=== PATIENT | female | born 1980 | race Caucasian/White ===

== ENCOUNTER → 2018-01-29 | Outpatient (CLI) | payer OTHER ==
[~2018-01-29] MED LIST: DHA PO; NORE0.3516 PO; ONDA4TAB97 PO; PREN-85 PO
[2018-01-29 11:27] LABS: PLATELET COUNT, AUTOMATED 185 K/uL (150-450)
--- NOTE | 2018-01-29 16:44 | RADIOLOGY IMAGING REPORT ---
FACILITY: [facility] [place] PATIENT NAME: Shania Vega : 1980 MR: [id number] V: [id number] EXAM DATE: ORDERING PHYSICIAN: FRANKLIN ACUNA TECHNOLOGIST: Location: [facility] Patient: Shania Vega : 1980 Visit/Account:[id number] Date of Sevice: 01/29/2018 Technique: CHEST PA AND LAT HISTORY: Night sweats COMPARISON: None available Findings: The lungs are clear. No pleural effusion or pneumothorax. The cardiomediastinal silhouett e is normal. Impression: 1. No acute cardiopulmonary process. Report Dictated By: Erasto Carrillo DO at 01/29/2018 4:39 PM Report E-Signed By: Erasto Carrillo DO at 01/29/2018 4:40 PM WSN:[id number]
== END ==
LOC: SPU 11:04
PROVIDERS: ATTEND Internal Medicine
DX: R79.89 Other specified abnormal findings of blood chemistry (principal); R61 Generalized hyperhidrosis
CPT/HCPCS: 71046; 82040; 82247; 82310; 82374; 82435; 82565; 82947; 83615; 84075; 84132; 84155; 84295; 84443; 84450; 84460; 84520; 84550; 85025

== ENCOUNTER → 2018-01-29 | Outpatient (CLI) | payer OTHER ==
--- NOTE | 2018-01-29 17:07 | RADIOLOGY IMAGING REPORT ---
FACILITY: [facility] PATIENT NAME: Shania Vega : 1980 MR: [id number] V: [id number] EXAM DATE: ORDERING PHYSICIAN: JEAN-PIERRE SMITH TECHNOLOGIST: Location: [facility] [place] Patient: Shania Vega : 1980 Visit/Account:[id number] Date of Sevice: 01/29/2018 Abdominal ultrasound Indication: Elevated LFTs Comparison: None Findings: Liver is normal in size, contour, and echotexture and measures 17.9 cm in length. There is normal hep atopedal portal venous flow. The spleen is normal in size, contour, and echotexture and measures 11.6 cm in length. Gallbladder surgically absent. Common duct measures 1.7 mm in maximum diameter with no evidence of shadowing stone. The head and proximal body of the pancreas is unremarkable. The distal body and tail is obscured by o verlying bowel gas. Abdominal aorta and IVC are patent and unremarkable. The bilateral kidneys are normal in size, contour, and echotexture with the right kidney measuring 9 .3 cm and the left kidney measuring 10.7 cm. IMPRESSION: 1. Unremarkable abdominal ultrasound as above. Report Dictated By: Ceasar Marte at 01/29/2018 5:02 PM Report E-Signed By: Ceasar Marte at 01/29/2018 5:04 PM WSN:[id number]
== END ==
LOC: RAD 15:03
PROVIDERS: ATTEND Internal Medicine Hematology
DX: R94.5 Abnormal results of liver function studies (principal)
CPT/HCPCS: 76700

== ENCOUNTER 2018-06-07 08:15 | Outpatient (RCR) | payer OTHER ==
--- NOTE | 2018-05-17 11:14 | PT INITIAL EVALUATION ---
MEDICAL DIAGNOSIS: Right hip likely labral tear TREATMENT DIAGNOSIS: same DATE OF ONSET: 04/09/18 SUBJECTIVE: Shania Vega presents to physical therapy with R hip pain that started approximately 6 weeks ago after doing hell sprints. She reports that he has stopped running or biking and limits her stretching and strength training staying away from ranges that causes pain in her R hip. She reports the following activities aggravate her R hip: full squat or lunge, increased R hip flexion, and sitting for long periods of time. She reports that if she sits for a long car ride her pain will last for approximately 15 to 20 minutes. Otherwise, she will feel the pain for a splint seconds that states that the pain is extremely sharp and then it would go away. She also reports that she has a popping noise/sensation that is not painful but does feel different/weird than normal. She reports that she would like to return to running, biking, and full strengthening training without any hip pain. She reports that nothing seems to make it feel better since it just lasts for a few seconds anyway. Pain location is R anterior hip and described as sharp. Pain scale is 1 on a ten point pain scale. REHAB PROBLEM LIST: Increased Pain Decreased ROM Decreased Strength Decreased Endurance Decreased Function Decreased Mobility PREVIOUS MEDICAL HISTORY: See EMR OCCUPATION: Clinical Pharmacist at [employer] OBJECTIVE: Posture: She demonstrated excellent posture mechanics in sitting and standing. ROM: R hip: flexion: full with painful end feel. Extension: full with normal end feel. IR: full with normal end feel. ER: full with normal end feel. Strength: R hip flexion: 4+/5 with pain, hip extension: 5/5 with no pain, hip adduction: 4+/5 with pain, hip IR/ER: 5/5 with no pain. Palpation: TTP: R anterior hip, iliopsoas Sensation: Intact L2-S2 Special Tests: Repeated flexion: pain during the test and worse following the test with decreased R hip flexion/adduction strength and increased pain. Repeated extension: pain during the test and worse following the test with decreased R hip flexion/adduction strength and increased pain. Repeated ER: stretch during the test and better following the test with increased strength R hip flexion/adduction strength and abolished pain. PAPI: positive, FADIR: positive, anterior labral test: positive, posterior labral test: negative Mobility: Independent Gait: She demonstrated normal gait mechanics; she did not demonstrate any signs or symptoms of antalgic gait. Balance: Will test in the future Other Objective Findings: ASSESSMENT: Shania will benefit from skilled physical therapy to address to listed impairments to improve function and return to prior level of function. Short Term Goals 2 weeks: Pt will be independent on her specific exercise; if the injury continues to demonstrate directional preference to improve function and QOL. 4 weeks: Pt will demonstrate full PROM-AAROM of R hip in all directions with normal end feels to improve function and QOL. 6 weeks: Pt will demonstrate full AROM of R hip in all directions with normal end feels to improve function and QOL. 8 weeks: Pt will return to full gym routine with 0/10 hip pain to improve function and QOL 12 weeks: Pt will return to running and biking with 0/10 hip pain to improve function and QOL. Patient's Goals run without pain, bike without pain, not limited in the gym due to pain PLAN: Patient to be seen for Manual Therapy/STM/MET Strengthening/condition Range of Motion Work Hardening/Cond Stretching Iontophoresis Neuromuscular Re-ed Closed Chain Program Home Exercise Program Therapeutic Activities 2-3x/week for 12 weeks If you have any questions, comments, or concerns about this report or plan, please contact me at . Thank you, Mehran Villagran, PT, DPT MTDD
== END 2018-06-07 18:00 | disposition home or self-care (01) ==
LOC: PT 08:15
PROVIDERS: ATTEND Orthopaedic Surgery
DX: M25.551 Pain in right hip (principal)
CPT/HCPCS: 97161

== ENCOUNTER → 2018-11-12 | Outpatient (REF) ==
[~2018-11-12] MED LIST changes: +ALBU2.5V36 INH; +LORA1TAB69 PO; +NORG1TAB94 PO; +SPIR50TA30 PO
== END ==
DX: Z02.9 Encounter for administrative examinations, unspecified (principal)

== ENCOUNTER → 2019-04-25 | Outpatient (CLI) | payer OTHER ==
[~2019-04-25] MED LIST changes: +CEFT250V37 IM; +CEPH500T7 PO; +SPIR25TA80 PO; +SULF-198 PO
== END ==
LOC: LAB 13:39
PROVIDERS: ATTEND Student in an Organized Health Care Education/Training Program
DX: R82.71 Bacteriuria (principal); B96.89 Other specified bacterial agents as the cause of diseases classified elsewhere
CPT/HCPCS: 87077; 87088; 87186